=== PATIENT | female | born 2000 | race Caucasian/White ===

== ENCOUNTER 2025-01-21 14:06 | Inpatient (IN) ==
--- NOTE | 2025-01-21 15:07 | Emergency Department Note ---
Impression & Plan Pancreatitis, Paraplegia, Abdominal pain ED Provider Note NAME: DAVY THOMAS AGE: 24 SEX: F : 2000 ARRIVES VIA: Walk-In INFORMANT: Patient ED PROVIDER(S): Rajeev Leon DO CHIEF COMPLAINT: RUQ abd pain HPI: Patient is a 24-year-old female. She was recently had removal of her left rib and a pneumothorax for thoracic outlet syndrome. She was discharged on Tuesday. Since being home on she started with right upper quadrant pain and nausea and diarrhea. She has not had any vomiting. She was seen in outside facility and diagnosed with pancreatitis with elevated lipase. She was discharged and not admitted and sent home. Since being home she started having worsening of her symptoms and followed up with her PCP and now has a lipase of 12,000. Denies any chest pain or shortness of breath. No dysuria, urgency or frequency. Admits to swelling of the legs which is chronic. ADDITIONAL HISTORY OBTAINED: Family at bedside note that she is a T12 paraplegic. Chronic Medical/Social Conditions Affecting Care: Per HPI PAST MEDICAL HISTORY:See Below PAST SURGICAL HISTORY:See Below FAMILY HISTORY:See Below SOCIAL HISTORY:See Below HOME MEDICATIONS:See Below ALLERGIES:See Below VITALS:See Below PHYSICAL EXAMINATION: GENERAL: Sitting up in bed, alert, well appearing, well nourished, no distress, non-toxic EYE EXAM: normal conjunctiva. OROPHARYNX: no exudate, no erythema, lips, buccal mucosa, and tongue normal and mucous membranes are moist NECK: supple, no nuchal rigidity, no adenopathy, non-tender LUNGS: Clear to auscultation. Normal chest wall mechanics HEART: no murmurs, S1 normal and S2 normal ABDOMEN: abdomen soft, non-tender, normo-active bowel sounds, no masses, no rebound or guarding. SKIN: no rashes and no bruising UPPER EXTREMITIES: upper extremities are grossly normal. LOWER EXTREMITIES: Pitting edema in the lower extremities NEURO EXAM: Normal sensorium, cranial nerves II-XII grossly intact, normal speech, no gross weakness of arms, no gross weakness of legs. MEDICAL DECISION MAKING: Patient is a 24-year-old female who presents ER for the above-stated complaint. IV was established blood work obtained. Labs showed no significant leukocytosis or anemia. BMP with slightly elevated chloride at 111. LFTs bilirubin was fairly unremarkable. Lipase was elevated 330. UA was clean. Ultrasound shows cholelithiasis. She is updated bedside. Patient was given IV fluids. She is up to the bedside. Discussed case with the hospitalist for further evaluation management treatment. Consults/Care Managements Discussions: Per [facility] Triage Nursing notes reviewed. Limited review of prior medical records performed Vital Signs: reviewed and remarkable for tachy Differential diagnosis: Differential diagnoses includes but is not limited to gastritis, peptic ulcer disease, GERD, gallbladder disease, pancreatitis, small bowel obstruction, appendicitis, diverticulitis, hernia, urinary tract infection, torsion, /ectopic (if female), perforation, trauma, infectious. ER treatment provided: See below Diagnostics interpreted by me include EKG and cardiac monitoring as listed below: -Cardiac Monitoring: An order was placed for continuous cardiac monitoring. The monitor shows a rate of 92 with sinus rhythm. -ECG: none -Laboratory studies:Interpreted by me as stated above in MDM and shown below. Imaging studies: Xrays: As interpreted by me:none CTs show: none Ultrasound of the gallbladder shows cholelithiasis Procedures:none Critical Care: None Past Med/Surg History Problem List Abdominal pain (Acute) Pancreatitis (Acute) Gallstone Acute pancreatitis Crohn's disease Right leg injury (Acute) Injury of left leg (Acute) Neuropathic ulcer Open wound of plantar aspect of right foot (Acute) Cellulitis of right foot (Acute) Lower extremity edema (Acute) Pressure ulcer of toe of right foot (Acute) Open wound of toe of right foot (Acute) Overactive bladder Recurrent UTI (urinary tract infection) (Acute) Cellulitis of right lower leg (Acute) Neurogenic bladder self catheterizes History of Crohn's disease Paraplegia (Chronic) History of wisdom tooth extraction, class I edentulism Medical History Environmental and seasonal allergies History of COVID-19 2021- no hosp; resolved Dysautonomia hx- no issues currently Exercise-induced asthma Fusion of lumbar spine T11-L2 >03/2020 Fusion of spine, thoracic region T11-L2 >03/2020 Mitrofanoff appendicovesicostomy present Closed wedge compression fracture of T12 vertebra hx Depression Surgical History History of esophagogastroduodenoscopy (EGD) Hx of colonoscopy History of suprapubic catheter reversed Family History Other Colon cancer Diabetes Social History Smoking Status: Never smoker Second Hand Exposure: No; Do You Dip or Chew Tobacco: No; Hx Alcohol Use: Yes Alcohol type: beer Alcohol Intake Frequency: Monthly or Less Hx Substance Use: No Preferred Language: Arabic Communication Ability: Effective 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 Beliefs That Will Affect Care: None marital status: Single Current Living Situation: Other Current Living Situation Comment: 3 student roommates current occupational status: student current occupation: lives in apt w/3 roomates Feels Safe at Home: Yes Diet: other Diet Comment: Cannot eat red meat 2/2 Crohns Assistive Devices: Glasses and Wheelchair Allergies Allergies Allergy/AdvReac Type Severity Reaction Status Date / Time chlorhexidine Allergy Severe Blister Unverified 01/21/25 17:33 codeine Allergy Severe HIVES/VOMIT Verified 01/21/25 17:19 ING peanut Allergy Severe Anaphylaxis Verified 01/21/25 17:19 clavulanic acid Allergy Intermediate Hives Verified 01/21/25 17:19 [From Augmentin] hydrocodone [From Vicodin] Allergy Intermediate Hives Verified 01/21/25 17:19 latex Allergy Intermediate BLISTERING Verified 01/21/25 17:19 RASH mirabegron [From Myrbetriq] Allergy Intermediate Rash Verified 01/21/25 17:19 Sulfa (Sulfonamide Allergy Intermediate HIVES/VOMIT Verified 01/21/25 17:19 Antibiotics) ING vancomycin Allergy Intermediate Hives Verified 01/21/25 17:19 Home Meds Home Medications Medication Instructions Recorded Confirmed ustekinumab 45 mg/0.5 mL 45 mg subcut DIRECTED 03/19/19 01/21/25 subcutaneous solution (Stelara) duloxetine 40 mg capsule,delayed 80 mg PO QPM 07/31/22 01/21/25 release baclofen 10 mg tablet 15 mg PO QID 08/06/22 01/21/25 gabapentin 600 mg tablet 600 mg PO QID 08/06/22 01/21/25 (Neurontin) albuterol sulfate 90 mcg/actuation 1 puff inhalation Q4H PRN sports 03/23/23 01/21/25 aerosol inhaler induced celecoxib 200 mg capsule (Celebrex) 200 mg PO BID PRN Pain 05/05/23 01/21/25 epinephrine 0.3 mg/0.3 mL 0.3 mg IM Q4H PRN analylaxis 06/23/23 01/21/25 injection, auto-injector (EpiPen) atenolol 50 mg tablet 50 mg PO DAILY 10/19/24 01/21/25 drospirenone (contraceptive) 4 mg 4 mg PO DAILY 10/19/24 01/21/25 (28) tablet (Slynd) midodrine 5 mg tablet 5 mg PO BID 10/19/24 01/21/25 multivitamin 1 tab PO DAILY 10/19/24 01/21/25 Results & Data (ED) Vital Signs Vital Signs - 24 hr 01/21/25 14:11 01/21/25 16:57 01/21/25 17:04 Temperature 36.6 C Temperature Source Temporal Artery Scan Pulse Rate 108 H 92 H 96 H Respiratory Rate 20 24 Respiratory Effort / Characteristics Non-Labored Respiratory Depth Normal Blood Pressure 127/70 125/66 Blood Pressure Mean 89 85 Pulse Oximetry 98 98 Oxygen Delivery Method Room Air Sepsis Recent Fever Within 48 Hours No Sepsis New/Unexplained Change in Mental Status No Sepsis Action Taken by Nursing No Action Required 01/21/25 17:21 01/21/25 18:00 01/21/25 18:30 Temperature Temperature Source Pulse Rate 99 H 90 90 Respiratory Rate 24 24 24 Respiratory Effort / Characteristics Respiratory Depth Blood Pressure 109/69 106/66 120/74 Blood Pressure Mean 82 89 87 Pulse Oximetry 98 96 98 Oxygen Delivery Method Sepsis Recent Fever Within 48 Hours Sepsis New/Unexplained Change in Mental Status Sepsis Action Taken by Nursing Laboratory Data 01/21/25 15:40 01/21/25 15:40 Lab Results 01/21/25 01/21/25 Range/Units 15:40 15:41 WBC 10.25 (4.8-10.8) K/ul RBC 4.50 (4.20-5.40) M/uL Hgb 12.2 (12.0-16.0) g/dl Hct 38.5 (37.0-47.0) % MCV 85.6 (80.0-100.0) fL MCH 27.1 (25.0-34.0) pg MCHC 31.7 L (32.0-36.0) g/dL RDW Std Deviation 40.5 (36.4-46.3) fL RDW Coeff of [place] 13.1 (11.5-14.5) % Plt Count 505 H (130-400) K/uL MPV 8.2 L (9.4-12.4) fL Immature Gran % (Auto) 1.0 % Neut % (Auto) 73.4 % Lymph % (Auto) 17.1 % [place] % (Auto) 6.3 % Eos % (Auto) 1.7 % Baso % (Auto) 0.5 % Neut # (Auto) 7.53 H (1.40-6.50) K/uL Lymph # (Auto) 1.75 (1.20-3.40) K/uL [place] # (Auto) 0.65 H (0.11-0.59) K/uL Eos # (Auto) 0.17 (0.00-0.50) K/uL Baso # (Auto) 0.05 (0.00-0.20) K/uL Immature Gran # (Auto) 0.10 (0.01-0.20) K/uL PT 10.9 (9.0-12.0) Seconds INR 1.0 (0.9-1.1) Sodium 144 (136-145) mmol/L Potassium 3.7 (3.5-5.1) mmol/L Chloride 111 H (98-107) mmol/L Carbon Dioxide 27 (21-32) mmol/L Anion Gap 6 (3-11) BUN 11 (6-23) mg/dl Creatinine 0.49 L (0.6-1.2) mg/dl Est Cr Clr Drug Dosing 197.1 ml/min eGFR 133.22 BUN/Creatinine Ratio 22.4 H (10-20) Glucose 86 (70-99(Fasting)) mg/dl Calcium 9.3 (8.6-10.3) mg/dl Total Bilirubin 0.2 (0.2-1.0) mg/dl AST 32 (13-39) U/L ALT 84 H (7-52) U/L Alkaline Phosphatase 76 (34-104) U/L Total Protein 6.8 (6.0-8.3) gm/dl Albumin 3.6 (3.4-5.0) gm/dl Globulin 3.2 (2.5-4.0) gm/dl Albumin/Globulin Ratio 1.1 (0.9-2) Lipase 336 H (11-82) U/L HCG, Qual Negative (Negative) Urine Color Yellow Urine Appearance Clear (Clear) Urine pH 7.0 (4.5-7.5) Ur Specific [place] 1.011 (1.000-1.030) Urine Protein Negative (Negative) Urine Glucose (UA) Negative (Negative) Urine Ketones Negative (Negative) Urine Blood Negative (Negative) Urine Nitrite Negative (Negative) Urine Bilirubin Negative (Negative) Urine Urobilinogen Negative (Negative) Ur Leukocyte Esterase Negative (Negative) Urine Comment Administered Medications Discontinued Medications Sodium Chloride (Nss) 1,000 mls @ 999 mls/hr IV .Q1H1M ONE Stop: 01/21/25 15:19 Last Infusion: 01/21/25 17:19 Dose: Infused Documented By: Admin: 01/21/25 15:39 Dose: 999 mls/hr Documented By: ANT Imaging Data Radiologist's Impression: Abdomen Ultrasound 01/21/25 14:19 EXAM: Abdo ultrasound abdomen limited CLINICAL HISTORY: Elevated lipase, LFTs. Known gallbladder stone/sludge TECHNIQUE: Ultrasound interrogation of the abdomen was performed with grayscale and color Doppler imaging. PRIORS: 12/2024 CT FINDINGS: The liver is enlarged measuring 18.8 cm. Normal liver parenchyma demonstrated. No intrahepatic ductal dilatation. No hepatic mass. Hepatopetal flow in the main portal vein is normal. Gallbladder is contracted. The gallbladder is filled with multiple shadowing gallstones and sludge. No gallbladder wall thickening, allowing for under distention or sonographic Del Angel sign. The common bile duct measures 4 mm. Visualized pancreas is normal. The right kidney is normal in size and configuration measuring 11.5 cm. No hydronephrosis. IVC and aorta are patent. Aorta is normal in size. IMPRESSION: 1. Cholelithiasis with no sonographic features of acute cholecystitis. Gallbladder is contracted. Clinical concern warrants, surgical consultation suggested. 2. Hepatomegaly with fatty liver ultrasound Electronically signed by Kimmy Meneses 01-21-2025 4:34 PM Discharge Plan Visit Data Chief Complaint: Referred by Doctor Stated Complaint: ELEVATED LOPASE ALT AST ED Provider: Rajeev Leon Discharge Problem: Pancreatitis, Paraplegia, Abdominal pain Patient Disposition: Admitted As Inpatient Condition: Fair Forms Stand Alone Forms: [facility], Important Visit Information Prescriptions Prescriptions: No Action baclofen 10 mg tablet 15 mg PO QID gabapentin [Neurontin] 600 mg tablet 600 mg PO QID epinephrine [EpiPen] 0.3 mg/0.3 mL auto-injector 0.3 mg IM Q4H PRN (Reason: analylaxis) multivitamin Tablet 1 tab PO DAILY atenolol 50 mg tablet 50 mg PO DAILY midodrine 5 mg tablet 5 mg PO BID Rx Instructions: do not give last dose of day after 6PM or within 4 hrs of bedtime Slynd 4 mg (28) tablet 4 mg PO DAILY ustekinumab [Stelara] 45 mg/0.5 mL solution 45 mg subcut DIRECTED Rx Instructions: every 8 weeks duloxetine 40 mg capsule,delayed release(DR/EC) 80 mg PO QPM albuterol sulfate 90 mcg/actuation HFA aerosol inhaler 1 puff INHALATION Q4H PRN (Reason: sports induced) celecoxib [Celebrex] 200 mg Capsule 200 mg PO BID PRN (Reason: Pain) Referrals Referrals: Liz Richards MD [Primary Care Provider] - Discharge Problem: Pancreatitis Qualifiers: Chronicity: acute Pancreatitis type: unspecified pancreatitis type Acute pancreatitis complication: unspecified Qualified Code(s): K85.90 - Acute pancreatitis without necrosis or infection, unspecified Abdominal pain Qualifiers: Abdominal location: unspecified location Qualified Code(s): R10.9 - Unspecified abdominal pain
[2025-01-21] MEDS: SODIUM CHLORIDE 0.9% 1,000 ML IV ONE (15:39)
[2025-01-21 15:53] LABS: Appearance Urine Clear (Clear); Glucose Urine UA Negative (Negative)
[2025-01-21 16:06] LABS: Hematocrit (blood only) 38.5 % (37.0-47.0); Hemoglobin 12.2 g/dl (12.0-16.0); Immature Granulocytes # (auto) 0.10 K/uL (0.01-0.20); Immature Granulocytes % (auto) 1.0 %; Mean Corpuscular Hemoglobin 27.1 pg (25.0-34.0); Mean Corpuscular Volume 85.6 fL (80.0-100.0); Platelet Count 505 K/uL (130-400); RDW Standard Deviation 40.5 fL (36.4-46.3); Red Blood Count 4.50 M/uL (4.20-5.40); White Blood Count 10.25 K/ul (4.8-10.8)
[2025-01-21 16:22] LABS: Pregnancy Test, Serum Negative (Negative)
[2025-01-21 16:24] LABS: Alanine Aminotransferase 84.0 U/L (7-52); Albumin Globulin Ratio 1.1 (0.9-2); Alkaline Phosphatase 76.0 U/L (34-104); Anion Gap 6.0 (3-11); Bilirubin,Total 0.2 mg/dl (0.2-1.0); Blood Urea Nitrogen 11.0 mg/dl (6-23); Calcium 9.3 mg/dl (8.6-10.3); Carbon Dioxide 27.0 mmol/L (21-32); Chloride 111.0 mmol/L (98-107); Creatinine Clr Calc Pharmacy 197.1 ml/min; Globulin 3.2 gm/dl (2.5-4.0); Glucose 86.0 mg/dl (70-99(Fasting)); Lipase 336.0 U/L (11-82); Potassium 3.7 mmol/L (3.5-5.1); Sodium 144.0 mmol/L (136-145); Total Protein 6.8 gm/dl (6.0-8.3)
--- NOTE | 2025-01-21 16:34 | Ultrasound Report ---
EXAM: Abdo ultrasound abdomen limited CLINICAL HISTORY: Elevated lipase, LFTs. Known gallbladder stone/sludge TECHNIQUE: Ultrasound interrogation of the abdomen was performed with grayscale and color Doppler imaging. PRIORS: 12/2024 CT FINDINGS: The liver is enlarged measuring 18.8 cm. Normal liver parenchyma demonstrated. No intrahepatic ductal dilatation. No hepatic mass. Hepatopetal flow in the main portal vein is normal. Gallbladder is contracted. The gallbladder is filled with multiple shadowing gallstones and sludge. No gallbladder wall thickening, allowing for under distention or sonographic Del Angel sign. The common bile duct measures 4 mm. Visualized pancreas is normal. The right kidney is normal in size and configuration measuring 11.5 cm. No hydronephrosis. IVC and aorta are patent. Aorta is normal in size. IMPRESSION: 1. Cholelithiasis with no sonographic features of acute cholecystitis. Gallbladder is contracted. Clinical concern warrants, surgical consultation suggested. 2. Hepatomegaly with fatty liver ultrasound Electronically signed by Kimmy Meneses 01-21-2025 4:34 PM
[2025-01-21 16:44] LABS: INR 1.0 (0.9-1.1); Prothrombin Time 10.9 Seconds (9.0-12.0)
--- NOTE | 2025-01-21 17:34 | History & Physical Report ---
Date of Service January 21, 2025 Assessment & Plan (1) Acute pancreatitis: Plan: Patient presents to the hospital worsening abdominal pain. Diagnosed with acute pancreatitis in an outside hospital however presents to the hospital worsening abdominal pain and increasing level of lipase. Ultrasound showed evidence of gallstones, this could be the etiology of appendicitis. Will obtain CT abdomen to make sure there is no necrosis. Keep n.p.o. IV normal saline 100 cc/h (2) Gallstone: Plan: Patient has a history of gallstones Ultrasound showed evidence of gallstones Will consult general surgery for elective cholecystectomy when the acute Pancreatitis quietens down (3) Neurogenic bladder: Plan: She is T12 paraplegic Self catheterizes (4) Paraplegia: Plan: Became paraplegic when a bale of hay fell on her about 5 years ago Plan Admit to [facility] Full code DVT prophylaxis Lovenox History of Present Illness Chief Complaint: abd pain Primary Care Provider: Liz Richards MD Is a 24-year-old female with a history of T12 paraplegia, recent thoracic outlet syndrome status post left rib removal who presents to the hospital today on account of abdominal pain with nausea and diarrhea. According to the patient, she started having some abdominal pain and diarrhea and went to [facility] where they noticed that she had a slightly elevated serum lipase. She was sent home from the ER and then asked how to manage it at home. However her pain got worse with worsening nausea and diarrhea so she went back to her PCP and they recheck her lipase was 1200 up from 200. The PCP then asked her to come to the hospital for evaluation. Of note, patient was not [facility] where she got her left ovary removed for thoracic outlet syndrome. Here in the emergency department, serum lipase was 336. Abdominal ultrasound showed evidence of cholelithiasis with no sonographic features of acute cholecystitis. Patient will be admitted to the hospital for further management. Allergies Allergy/AdvReac Type Severity Reaction Status Date / Time chlorhexidine Allergy Severe Blister Unverified 01/21/25 17:33 codeine Allergy Severe HIVES/VOMIT Verified 01/21/25 17:19 ING peanut Allergy Severe Anaphylaxis Verified 01/21/25 17:19 clavulanic acid Allergy Intermediate Hives Verified 01/21/25 17:19 [From Augmentin] hydrocodone [From Vicodin] Allergy Intermediate Hives Verified 01/21/25 17:19 latex Allergy Intermediate BLISTERING Verified 01/21/25 17:19 RASH mirabegron [From Myrbetriq] Allergy Intermediate Rash Verified 01/21/25 17:19 Sulfa (Sulfonamide Allergy Intermediate HIVES/VOMIT Verified 01/21/25 17:19 Antibiotics) ING vancomycin Allergy Intermediate Hives Verified 01/21/25 17:19 Home Medications Medication Instructions Recorded Confirmed Type ustekinumab 45 mg/0.5 mL 45 mg subcut DIRECTED 03/19/19 10/19/24 History subcutaneous solution (Stelara) duloxetine 40 mg capsule,delayed 80 mg PO QAM 07/31/22 10/19/24 History release baclofen 10 mg tablet 15 mg PO QID 08/06/22 10/19/24 History gabapentin 600 mg tablet 600 mg PO QID 08/06/22 10/19/24 History (Neurontin) albuterol sulfate 90 mcg/actuation 1 puff inhalation Q4H PRN sports 03/23/23 10/19/24 History aerosol inhaler induced celecoxib 200 mg capsule (Celebrex) 200 mg PO BID PRN Pain 05/05/23 10/19/24 History epinephrine 0.3 mg/0.3 mL 0.3 mg IM Q4H PRN 06/23/23 10/19/24 History injection, auto-injector (EpiPen) atenolol 50 mg tablet 50 mg PO DAILY 10/19/24 10/19/24 History drospirenone (contraceptive) 4 mg 4 mg PO DAILY 10/19/24 10/19/24 History (28) tablet (Slynd) midodrine 5 mg tablet 5 mg PO ONCE 10/19/24 10/19/24 History multivitamin 1 tab PO DAILY 10/19/24 10/19/24 History Past Med/Surg History Problem List Gallstone Acute pancreatitis Crohn's disease Right leg injury (Acute) Injury of left leg (Acute) Neuropathic ulcer Open wound of plantar aspect of right foot (Acute) Cellulitis of right foot (Acute) Lower extremity edema (Acute) Pressure ulcer of toe of right foot (Acute) Open wound of toe of right foot (Acute) Overactive bladder Recurrent UTI (urinary tract infection) (Acute) Cellulitis of right lower leg (Acute) Neurogenic bladder self catheterizes History of Crohn's disease Paraplegia (Chronic) History of wisdom tooth extraction, class I edentulism Medical History Environmental and seasonal allergies History of COVID-19 2021- no hosp; resolved Dysautonomia hx- no issues currently Exercise-induced asthma Fusion of lumbar spine T11-L2 >03/2020 Fusion of spine, thoracic region T11-L2 >03/2020 Mitrofanoff appendicovesicostomy present Closed wedge compression fracture of T12 vertebra hx Depression Surgical History History of esophagogastroduodenoscopy (EGD) Hx of colonoscopy History of suprapubic catheter reversed Family History Other Colon cancer Diabetes Social History Smoking Status: Never smoker Second Hand Exposure: No; Do You Dip or Chew Tobacco: No; Hx Alcohol Use: Yes Alcohol type: beer Alcohol Intake Frequency: Monthly or Les s Hx Substance Use: No Preferred Language: Australian Communication Ability: Effective Information Systems Coordinator Required: No Beliefs That Will Affect Care: None marital status: Single Current Living Situation: Other Current Living Situation Comment: 3 student roommates current occupational status: student current occupation: lives in [facility] w/3 roomates Feels Safe at Home: Yes Diet: other Diet Comment: Cannot eat red meat 2/2 Crohns Assistive Devices: Glasses and Wheelchair Review of Systems Review of Systems: All systems reviewed are negative, apart from the ones contained in the history. Physical Exam Physical Exam: The patient is awake, alert and oriented 3, well developed and well nourished, normocephalic and atraumatic, lying in bed and in no acute distress. HEENT--PERRL, EOMI, mucous membranes and oropharynx mildly dry Neck--supple. No JVD. No bruits. Thyroid normal, trachea midline, no adenopathy. Heart--normal S1 and S2. No murmurs, rubs or gallops. Lungs--clear bilaterally, no respiratory distress, no accessory muscle use. Abdomen--normal bowel sounds and soft. Extremities--paraplegia. Dermatologic--normal skin turgor, normal color, no abnormal lymph nodes, no rash. Neurologic--cranial nerves II through XII grossly intact. Rheumatologic--normal range of motion. Psychiatric--normal affect. Results & Data Results & Data Vital Signs (Past 12 Hours) Vital Signs Temp Pulse Resp BP Pulse Ox O2 Del Method 01/21/25 17:04 96 H 01/21/25 16:57 92 H 24 125/66 98 01/21/25 14:11 97.9 F 108 H 20 127/70 98 Room Air PG Care Time/CCT Total # of Minutes Spent Total Time Spent with Patient: Total time spent is greater than 50% in coordination of care (as documented) at patient's floor/unit and/or counseling patient: Coding Level of Care Code 10236 INT INP/OBS CARE 3/75MIN Diagnoses Acute pancreatitis K85.90 Gallstone K80.20 Neurogenic bladder N31.9 Paraplegia G82.20 Time Spent (min) 75
--- NOTE | 2025-01-21 20:03 | Surgery Consultation ---
Date of Consultation January 21, 2025 Assessment & Plan (1) Gallstone pancreatitis: Patient is being admitted on the hospitalist service. Plan The patient is being admitted on the hospitalist service. Surgical recommendations are as follows: Patient is noted to have pancreatitis, and I suspect that this is likely due to gallstones N.p.o. status should be implemented She should be hydrated intravenous fluids Analgesics should be provided Antiemetic should be provided As patient does not have signs of cholecystitis do not feel antibiotics are needed at this time Serial labs should be followed to ensure she does not have worsening LFTs or worsening of her lipase I discussed with the patient the potential of performing cholecystectomy and noted to her that would best to let her pancreatitis resolved prior to undergoing cholecystectomy. In addition if the patient's pancreatitis resolves and she is pain-free, it may be beneficial to delay cholecystectomy as patient has had a recent pneumothorax from a different surgical procedure. Ch olecystectomy would require general anesthesia and positive pressure ventilation making her at increased risk for recurrent pneumothorax. We will await the results of patient's repeat LFTs and follow her clinically with further recommendations to follow History of Present Illness Reason for Consultation: Gallstone pancreatitis History of Present Illness This is a 24-year-old female who presented to the emergency department at the recommendation of her primary care physician. The patient notes that approximately 5 days ago she developed some abdominal pain that was located in the right upper quadrant/epigastric area of her abdomen. She did not have any radiation or other modifying factors to the pain. In addition to her pain she noted some intermittent diarrhea as well as nausea without vomiting. She was the first day of her pain she had temperature of 101. Patient was seen at the [facility] emergency department where she was diagnosed with gallstones as well as pancreatitis but she opted for discharge home at that time. Patient states she is having intermittent ongoing pain which became somewhat worse this morning after eating breakfast so she presented to her primary care editions office and she was referred to the emergency department due to concerns for ongoing pancreatitis. The patient does note that she has a T12 paraplegic. She does have some use of her lower extremities. The patient notes that because of her paraplegia she has a neurogenic bladder and she has undergone a Mitrofanoff procedure at [facility] in [place], [place]. (urinary diversion procedure). She notes that this was an open abdominal surgery and she now straight caths herself multiple times per day using a 14 Armenian latex free catheter. In addition the patient notes that she had a recent diagnosis of thoracic outlet syndromeshe states she did not have any arterial or venous clots but she did have numbness and tingling and paresthesias in her left upper extremity and therefore underwent a first rib resection. She notes that this procedure was performed at [facility] was complicated by left pneumothorax requiring hospitalization with chest tube for multiple days. The patient does add that after undergoing this procedure she was placed on subcutaneous heparin 4 times daily for prophylactic dosing but she has been not been taking this medication for the past 5 days. Patient further adds that she has never had a DVT or PE since her diagnosis of paraplegia. Upon presentation to the emergency department [facility] she did have an abdominal ultrasound which showed that the patient had a contracted gallbladder with multiple gallstones and sludge. There is no gallbladder wall thickening and no dilatation of the common bile duct. Cholecystitis was not noted on this study. Labs included CBC white blood cell count, hemoglobin and hematocrit were all normal. Platelet count is 505,000. Coagulation studies are noted to be normal. Chemistry profile showed sodium and potassium were normal. Her BUN and creatinine are not elevated. LFTs revealed total bilirubin, AST, and alkaline phosphatase are all not elevated. There is a slight elevation of her ALT at 84. Her lipase was elevated at 336. test was negative. Urinalysis was not taken of infection. At the time of my interview she is resting comfortably in bed and she has no distress Allergies Allergy/AdvReac Type Severity Reaction Status Date / Time chlorhexidine Allergy Severe Blister Unverified 01/21/25 17:33 codeine Allergy Severe HIVES/VOMIT Verified 01/21/25 17:19 ING peanut Allergy Severe Anaphylaxis Verified 01/21/25 17:19 clavulanic acid Allergy Intermediate Hives Verified 01/21/25 17:19 [From Augmentin] hydrocodone [From Vicodin] Allergy Intermediate Hives Verified 01/21/25 17:19 latex Allergy Intermediate BLISTERING Verified 01/21/25 17:19 RASH mirabegron [From Myrbetriq] Allergy Intermediate Rash Verified 01/21/25 17:19 Sulfa (Sulfonamide Allergy Intermediate HIVES/VOMIT Verified 01/21/25 17:19 Antibiotics) ING vancomycin Allergy Intermediate Hives Verified 01/21/25 17:19 Home Medications Medication Instructions Recorded Confirmed Type ustekinumab 45 mg/0.5 mL 45 mg subcut DIRECTED 03/19/19 01/21/25 History subcutaneous solution (Stelara) duloxetine 40 mg capsule,delayed 80 mg PO QPM 07/31/22 01/21/25 History release baclofen 10 mg tablet 15 mg PO QID 08/06/22 01/21/25 History gabapentin 600 mg tablet 600 mg PO QID 08/06/22 01/21/25 History (Neurontin) albuterol sulfate 90 mcg/actuation 1 puff inhalation Q4H PRN sports 03/23/23 01/21/25 History aerosol inhaler induced celecoxib 200 mg capsule (Celebrex) 200 mg PO BID PRN Pain 05/05/23 01/21/25 History epinephrine 0.3 mg/0.3 mL 0.3 mg IM Q4H PRN analylaxis 06/23/23 01/21/25 History injection, auto-injector (EpiPen) atenolol 50 mg tablet 50 mg PO DAILY 10/19/24 01/21/25 History drospirenone (contraceptive) 4 mg 4 mg PO DAILY 10/19/24 01/21/25 History (28) tablet (Slynd) midodrine 5 mg tablet 5 mg PO BID 10/19/24 01/21/25 History multivitamin 1 tab PO DAILY 10/19/24 01/21/25 History Patient History Medical History Environmental and seasonal allergies History of COVID-2021- no hosp; resolved Dysautonomia hx- no issues currently Exercise-induced asthma Fusion of lumbar spine T11-L2 >03/2020 Fusion of spine, thoracic region T11-L2 >03/2020 Mitrofanoff appendicovesicostomy present Closed wedge compression fracture of T12 vertebra hx Depression Surgical History History of esophagogastroduodenoscopy (EGD) Hx of colonoscopy History of suprapubic catheter reversed Family History Other Colon cancer Diabetes Social History Smoking Status: Never smoker Second Hand Exposure: No; Do You Dip or Chew Tobacco: No; Hx Alcohol Use: Yes Alcohol type: beer Alcohol Intake Frequency: Monthly or L ess Hx Substance Use: No Preferred Language: Guinean Communication Ability: Effective Engineering Inspector Required: No Beliefs That Will Affect Care: None marital status: Single Current Living Situation: Other Current Living Situation Comment: 3 student roommates current occupational status: student current occupation: lives in apt w/3 roomates Feels Safe at Home: Yes Diet: other Diet Comment: Cannot eat red meat 2/2 Crohns Assistive Devices: Glasses and Wheelchair Review of Systems Review of Systems: All systems reviewed & are unremarkable except as noted in HPI & below Physical Exam Constitutional: WD/WN, vitals as above Eyes: + anicteric sclerae ENMT: Ears: no hearing impairment and no external ear abnormality No sublingual jaundice noted Neck: trachea midline Respiratory: normal respiratory effort; no respiratory distress and no labored breathing Cardiovascular: Rate/Rhythm: regular rate and regular rhythm Gastrointestinal (Abdomen): Abdomen is soft and nondistended. There is no rebound tenderness, guarding, or rigidity. The patient did have pain with palpation in the right upper quadrant and to a greater degree of the epigastric area. Musculoskeletal: Patient has a well-healed incision in the vicinity of her left clavicle from her recent thoracic outlet syndrome surgery Skin: no jaundice Neurologic: Patient is able to move her upper extremities without noted focal deficits. She has limited movement of her lower extremities which is a pre-existing condition Psychiatric: A+Ox3, euthymic affect Results & Data Vital Signs (Past 12 Hours) Vital Signs Temp Pulse Pulse Resp BP BP Pulse Ox 01/21/25 19:00 89 16 124/77 99 01/21/25 18:30 90 24 120/74 98 01/21/25 18:00 90 24 106/66 96 01/21/25 17:21 99 H 24 109/69 98 01/21/25 17:04 96 H 01/21/25 16:57 92 H 24 125/66 98 01/21/25 14:11 36.6 C 108 H 20 127/70 98 O2 Del Method 01/21/25 19:00 Room Air 01/21/25 18:30 01/21/25 18:00 01/21/25 17:21 01/21/25 17:04 01/21/25 16:57 01/21/25 14:11 Room Air PG Care Time/CCT Total # of Minutes Spent Total Time Spent with Patient: Total time spent is greater than 50% in coordination of care (as documented) at patient's floor/unit and/or counseling patient: Coding Level of Care Code 56098 IN/OBS CONSULT LVL 5,80M Diagnoses Gallstone pancreatitis K85.10
[2025-01-21] MEDS ORDERED: MoRPHine SULFATE 2 MG/ML CARP IV PRN (20:18)
[2025-01-21] MEDS ORDERED: ACETAMINOPHEN 325 MG TAB PO PRN (20:18)
[2025-01-21] MEDS: BACLOFEN 10 MG TAB PO SCH (20:32)
[2025-01-21] MEDS: ATENOLOL 50 MG TABLET PO SCH (20:32)
[2025-01-21] MEDS: GABAPENTIN 600 MG TAB PO SCH (20:32)
[2025-01-21] MEDS: SODIUM CHLORIDE 0.9% 1,000 ML IV SCH (20:55)
[2025-01-21] MEDS ORDERED: ACETAMINOPHEN 1,000 MG/100 ML VIAL IV PRN (21:54)
[2025-01-22 06:24] LABS: Hematocrit (blood only) 34.3 % (37.0-47.0); Hemoglobin 11.1 g/dl (12.0-16.0); Immature Granulocytes # (auto) 0.07 K/uL (0.01-0.20); Immature Granulocytes % (auto) 1.0 %; Mean Corpuscular Hemoglobin 27.6 pg (25.0-34.0); Mean Corpuscular Volume 85.3 fL (80.0-100.0); Platelet Count 400 K/uL (130-400); RDW Standard Deviation 39.8 fL (36.4-46.3); Red Blood Count 4.02 M/uL (4.20-5.40); White Blood Count 6.83 K/ul (4.8-10.8)
[2025-01-22 08:49] LABS: Anion Gap 6.0 (3-11); Bilirubin,Total 0.3 mg/dl (0.2-1.0); Calcium 8.9 mg/dl (8.6-10.3); Carbon Dioxide 24.0 mmol/L (21-32); Chloride 112.0 mmol/L (98-107); Potassium 3.9 mmol/L (3.5-5.1); Sodium 142.0 mmol/L (136-145)
[2025-01-22 08:55] LABS: Alanine Aminotransferase 69.0 U/L (7-52); Albumin Globulin Ratio 1.1 (0.9-2); Alkaline Phosphatase 68.0 U/L (34-104); Blood Urea Nitrogen 8.0 mg/dl (6-23); Creatinine Clr Calc Pharmacy 191.2 ml/min; Globulin 2.8 gm/dl (2.5-4.0); Glucose 87.0 mg/dl (70-99(Fasting)); Total Protein 6.0 gm/dl (6.0-8.3)
--- NOTE | 2025-01-22 09:22 | Surgery Progress Note ---
Date of Service January 22, 2025 Assessment & Plan (1) Gallstone pancreatitis: Plan: Her ultrasound and CT images and results were personally viewed and interpreted by myself On her CT scan around 3 weeks ago she has an umbilical hernia with her catheter tract present out to the umbilicus She is currently improving with regards to her gallstone pancreatitis She has no clinical signs of cholecystitis Will give her clear liquids today and slowly advance her diet There is no plan for any cholecystectomy this admission and I had a long discussion with the patient and her father as I think she is best suited to return to [facility] where she had her bladder procedure to discuss elective cholecystectomy Surgery will follow (2) Neurogenic bladder: Admission and Anticipated Discharge Date Admission Date: January 21, 2025 Subjective Patient seen and examined. Still with some epigastric abdominal pain but improved since yesterday. Denies any nausea or vomiting. Afebrile. Review of Systems Constitutional: no fever and no chills Respiratory: no cough and no dyspnea Cardiovascular: no chest pain and no dyspnea on exertion Gastrointestinal: + abdominal pain; no nausea, no vomiting , no constipation and no diarrhea/loose stools Musculoskeletal: no back pain and no neck pain Integumentary: no acne and no lesions Psychiatric: no behavioral changes and no depression Physical Exam Constitutional: WD/WN, vitals as above Neck: trachea midline, no thyromegaly Respiratory: normal respiratory effort, lungs clear to auscultation Cardiovascular: RRR, no murmur, no edema Gastrointestinal (Abdomen): Inspection/Auscultation: abdomen normal to inspe ction; abdomen not distended Percussion/Palpation: + abdomen tender (Mild epigastric) and abdomen soft; no guarding Musculoskeletal: no cyanosis or clubbing, extremities motor strength 5/5 Skin: no rashes, warm and dry Psychiatric: A+Ox3, euthymic affect Results & Data Vital Signs (Past 12 Hours) Vital Signs Temp Pulse Resp BP Pulse Ox O2 Del Method 01/22/25 08:05 37 C 91 H 16 117/69 96 Room Air PG Care Time/CCT Total # of Minutes Spent Total Time Spent with Patient: Total time spent is greater than 50% in coordination of care (as documented) at patient's floor/unit and/or counseling patient: Coding Level of Care Code 38966 SUB INP/OBS CARE 2/35MIN Diagnoses Gallstone pancreatitis K85.10 Neurogenic bladder N31.9
[2025-01-22] MEDS ORDERED: Nursing to Pharmacy Communication SCH (09:30)
--- NOTE | 2025-01-22 10:20 | Hospitalist Progress Note ---
Date of Service January 22, 2025 Assessment & Plan (1) Acute pancreatitis: Plan: Patient presents to the hospital worsening abdominal pain. Diagnosed with acute pancreatitis in an outside hospital however presents to the hospital worsening abdominal pain and increasing level of lipase. Ultrasound showed evidence of gallstones, this could be the etiology of appendicitis. No abdominal pain this morning will try clear liquid diet (2) Gallstone: Plan: Patient has a history of gallstones Ultrasound showed evidence of gallstones Gen surgery evaluated, appreciate recs No plans for surgery, given recent pneumoperitonuem May follow surgery outpatient for elective surgery at a later date (3) Neurogenic bladder: Plan: She is T12 paraplegic Self catheterizes (4) Paraplegia: Plan: Became paraplegic when a bale of hay fell on her about 5 years ago Plan Admit to [facility] Full code DVT prophylaxis Lovenox Admission and Anticipated Discharge Date Admission Date: January 21, 2025 Subjective patient seen and examined, no abd pain, Review of Systems Review of Systems: All systems reviewed are negative, apart from the ones contained in the history. Physical Exam Physical Exam: The patient is awake, alert and oriented 3, well developed and well nourished, normocephalic and atraumatic, lying in bed and in no acute distress. HEENT--PERRL, EOMI, mucous membranes and oropharynx mildly dry Neck--supple. No JVD. No bruits. Thyroid normal, trachea midline, no adenopathy. Heart--normal S1 and S2. No murmurs, rubs or gallops. Lungs--clear bilaterally, no respiratory distress, no accessory muscle use. Abdomen--normal bowel sounds and soft. Extremities--paraplegia. Dermatologic--normal skin turgor, normal color, no abnormal lymph nodes, no rash. Neurologic--cranial nerves II through XII grossly intact. Rheumatologic--normal range of motion. Psychiatric--normal affect. Results & Data Results & Data Vital Signs (Past 12 Hours) Vital Signs Temp Pulse Resp BP Pulse Ox O2 Del Method 01/22/25 08:05 98.6 F 91 H 16 117/69 96 Room Air PG Care Time/CCT Total # of Minutes Spent Total Time Spent with Patient: Total time spent is greater than 50% in coordination of care (as documented) at patient's floor/unit and/or counseling patient: Coding Level of Care Code 72528 SUB INP/OBS CARE 235MIN Diagnoses Acute pancreatitis K85.90 Gallstone K80.20 Neurogenic bladder N31.9 Paraplegia G82.20 Time Spent (min) 35
[2025-01-22] MEDS: MIDODRINE HCL 2.5 MG TAB PO SCH (11:18)
[2025-01-22] MEDS ORDERED: MIDODRINE HCL 2.5 MG TAB PO SCH (17:00)
[2025-01-22] MEDS: ATENOLOL 50 MG TABLET PO SCH (19:13)
[2025-01-22 23:38] VITALS: RESP 16
[2025-01-23 07:22] LABS: Hematocrit (blood only) 34.4 % (37.0-47.0); Hemoglobin 11.3 g/dl (12.0-16.0); Mean Corpuscular Hemoglobin 27.9 pg (25.0-34.0); Mean Corpuscular Volume 84.9 fL (80.0-100.0); Platelet Count 405 K/uL (130-400); RDW Standard Deviation 39.3 fL (36.4-46.3); Red Blood Count 4.05 M/uL (4.20-5.40); White Blood Count 4.95 K/ul (4.8-10.8)
[2025-01-23 07:47] LABS: Anion Gap 8.0 (3-11); Blood Urea Nitrogen 5.0 mg/dl (6-23); Calcium 9.1 mg/dl (8.6-10.3); Carbon Dioxide 24.0 mmol/L (21-32); Chloride 111.0 mmol/L (98-107); Creatinine Clr Calc Pharmacy 208.2 ml/min; Glucose 86.0 mg/dl (70-99(Fasting)); Potassium 3.6 mmol/L (3.5-5.1); Sodium 143.0 mmol/L (136-145)
[2025-01-23 08:04] VITALS: BP 127/73; PULSE 85; TEMP 98.1; O2SAT 96
--- NOTE | 2025-01-23 09:52 | Surgery Progress Note ---
Date of Service January 23, 2025 Assessment & Plan (1) Gallstone pancreatitis: Plan: She is improving, would advance her to a low-fat diet for lunch and if she tolerates this she can likely be discharged later today She is going to follow-up with [facility] where she had her bladder procedure done to discuss elective cholecystectomy as I do not think that should be done at this institution Surgical sign off at this time, please call with any questions or concerns (2) Neurogenic bladder: Admission and Anticipated Discharge Date Admission Date: January 21, 2025 Subjective Patient seen and examined. Tolerating clear liquids. States she has no abdominal pain. No nausea or vomiting. Review of Systems Constitutional: no fever and no chills Respiratory: no cough and no dyspnea Cardiovascular: no chest pain and no dyspnea on exertion Gastrointestinal: no abdominal pain, no nausea, no vomiting, no constipation and no diarrhea/loose stools Musculoskeletal: no back pain and no neck pain Integumentary: no acne and no lesions Psychiatric: no behavioral changes and no depression Physical Exam Constitutional: WD/WN, vitals as above Neck: trachea midline, no thyromegaly Respiratory: normal respiratory effort, lungs clear to auscultation Cardiovascular: RRR, no murmur, no edema Gastrointestinal (Abdomen): Inspection/Auscultation: abdomen normal to inspection; abdomen not distended Percussion/Palpation: abdomen soft; abdomen nontender and no guarding Musculoskeletal: no cyanosis or clubbing, extremities motor strength 5/5 Skin: no rashes, warm and dry Psychiatric: A+Ox3, euthymic affect Results & Data Vital Signs (Past 12 Hours) Vital Signs Temp Pulse Resp BP Pulse Ox O2 Del Method 01/23/25 08:03 36.7 C 85 16 127/73 96 Room Air 01/22/25 23:05 36.9 C 79 16 129/84 98 Room Air PG Care Time/CCT Total # of Minutes Spent Total Time Spent with Patient: Total time spent is greater than 50% in coordination of care (as documented) at patient's floor/unit and/or counseling patient: Coding Level of Care Code 26320 SUB INP/OBS CARE 06/23MIN Diagnoses Gallstone pancreatitis K85.10 Neurogenic bladder N31.9
--- NOTE | 2025-01-23 13:22 | Discharge Summary ---
Date of Service January 23, 2025 Admission HPI Per Admitting Provider Is a 24-year-old female with a history of T12 paraplegia, recent thoracic outlet syndrome status post left rib removal who presents to the hospital today on account of abdominal pain with nausea and diarrhea. According to the patient, she started having some abdominal pain and diarrhea and went to [facility] where they noticed that she had a slightly elevated serum lipase. She was sent home from the ER and then asked how to manage it at home. However her pain got worse with worsening nausea and diarrhea so she went back to her PCP and they recheck her lipase was 1200 up from 200. The PCP then asked her to come to the hospital for evaluation. Of note, patient was not [facility] where she got her left ovary removed for thoracic outlet syndrome. Here in the emergency department, serum lipase was 336. Abdominal ultrasound showed evidence of cholelithiasis with no sonographic features of acute cholecystitis. Patient will be admitted to the hospital for further management. Admission Exam (Per Admitting) Constitutional WD/WN, vitals as above Eyes + anicteric sclerae ENMT Ears: no hearing impairment and no external ear abnormality Neck trachea midline, no thyromegaly trachea midline Respiratory normal respiratory effort, lungs clear to auscultation normal respiratory effort; no respiratory distress and no labored breathing Cardiovascular RRR, no murmur, no edema Rate/Rhythm: regular rate and regular rhythm Gastrointestinal (Abdomen) Inspection/Auscultation: abdomen normal to inspection; abdomen not distended Percussion/Palpation: abdomen soft; abdomen nontender and no guarding Musculoskeletal no cyanosis or clubbing, extremities motor strength 5/5 Skin no rashes, warm and dry no jaundice Psychiatric A+Ox3, euthymic affect Discharge Data Consultations 01/21/25 16:52 ED Decision to Admit Stat 01/21/25 17:28 Consult General Surgery Routine Hospital Course (1) Acute pancreatitis: Patient presents to the hospital worsening abdominal pain. Diagnosed with acute pancreatitis in an outside hospital however presents to the hospital worsening abdominal pain and increasing level of lipase. Ultrasound showed evidence of gallstones, this could be the etiology of appendicitis. No abdominal pain this morning Tolerated regular diet Will discharge home on low fat diet (2) Gallstone: Patient has a history of gallstones Ultrasound showed evidence of gallstones Gen surgery evaluated, appreciate recs No plans for surgery, given recent pneumoperitonuem May follow surgery outpatient for elective surgery at a later date (3) Neurogenic bladder: She is T12 paraplegic Self catheterizes (4) Paraplegia: Became paraplegic when a bale of hay fell on her about 5 years ago Plan Admit to [facility] Full code DVT prophylaxis Lovenox Coding Level of Care Code 34969 INP/OBS DISCH >30 MIN Diagnoses Acute pancreatitis K85.90 Gallstone K80.20 Neurogenic bladder N31.9 Paraplegia G82.20 Time Spent (min) 35
== END 2025-01-23 13:41 | disposition home or self-care (01) | DRG 439 ==
LOC: ED 14:06 → EDINP 17:21 → 3W 20:33